=== PATIENT | female | born 1950 | race Caucasian/White ===

== ENCOUNTER 2019-03-29 11:00 | Day surgery (SDC) | payer MEDICARE, OTHER ==
[~2019-03-29] VITALS: Ht 172.7 cm; Wt 85.8 kg
[2019-03-29] MEDS ORDERED: SUCR1 (11:37)
[2019-03-29] MEDS ORDERED: TIOT18 (11:38)
[2019-03-29] MEDS ORDERED: PANT20 (11:38)
[2019-03-29] MEDS ORDERED: Ventolin5 MG/1 ML (11:39)
[2019-03-29] MEDS ORDERED: DEXL60CA3 (11:39)
== END 2019-03-29 12:44 | disposition home or self-care (01) ==
LOC: ORSCSDS 11:00
PROVIDERS: Internal Medicine Gastroenterology
PROC: 0DB68ZX Excision of Stomach, Via Natural or Artificial Opening Endoscopic, Diagnostic (ICD-10-PCS; principal; 2019-03-29 12:15)
PROC: 0D758ZZ Dilation of Esophagus, Via Natural or Artificial Opening Endoscopic (ICD-10-PCS; principal; 2019-03-29 12:15)
PROC: 0DB98ZX Excision of Duodenum, Via Natural or Artificial Opening Endoscopic, Diagnostic (ICD-10-PCS; principal; 2019-03-29 12:15)
DX: R13.10 Dysphagia, unspecified (principal); K29.80 Duodenitis without bleeding; R10.13 Epigastric pain; R11.2 Nausea with vomiting, unspecified; R63.4 Abnormal weight loss; Z87.11 Personal history of peptic ulcer disease; J44.9 Chronic obstructive pulmonary disease, unspecified; F32.9 Major depressive disorder, single episode, unspecified; Z87.891 Personal history of nicotine dependence; Z79.899 Other long term (current) drug therapy
CPT/HCPCS: 88305; 88342; J2704; J7120

== ENCOUNTER → 2019-12-06 | Outpatient (CLI) | payer MEDICARE, OTHER ==
[~2019-12-06] MED LIST: DEXL60CA3; PANT20; SUCR1; TIOT18; Ventolin5 MG/1 ML
== END | disposition home or self-care (01) ==
LOC: LAB SHORT 16:35 → LAB 16:35
DX: N39.0 Urinary tract infection, site not specified (principal)
CPT/HCPCS: 87077; 87086; 87186

== ENCOUNTER 2020-01-10 11:01 | Day surgery (SDC) | payer MEDICARE, OTHER ==
[~2020-01-10] VITALS: Ht 172.7 cm; Wt 87.0 kg
[2020-01-10] MEDS ORDERED: ALBU3IS (11:19)
--- NOTE | 2020-01-10 12:13 | NUR ---
01/10/20 1213 Natasha Art INCOMPLETE COLONOSCOPY, UNABLE TO REACH CUCUM.
--- NOTE | 2020-01-10 12:40 | NUR ---
01/10/20 1240 Natasha Art PT TRANSFERRED TO [facility] IM[facility]ING FOR BARIUM ENEMA D/T INCOMPLETE COLONOSCOPY. UNABLE TO REACH CECUM.
== END 2020-01-10 12:40 | disposition home or self-care (01) ==
LOC: ORSCSDS 11:01
PROVIDERS: Internal Medicine Gastroenterology
PROC: 0DJD8ZZ Inspection of Lower Intestinal Tract, Via Natural or Artificial Opening Endoscopic (ICD-10-PCS; principal; 2020-01-10 12:15)
DX: Z12.11 Encounter for screening for malignant neoplasm of colon (principal); Z86.010 Personal history of colon polyps; K64.8 Other hemorrhoids; J44.9 Chronic obstructive pulmonary disease, unspecified; Z87.891 Personal history of nicotine dependence; Z79.899 Other long term (current) drug therapy
CPT/HCPCS: 74270; J2704; J7120

== ENCOUNTER → 2020-11-10 | Outpatient (CLI) | payer MEDICARE, OTHER ==
[~2020-11-10] MED LIST changes: +ALBU3IS
[2020-11-11 12:33] LABS: Stool Occult Bld Immuno 1 Positive (NEGATIVE); Stool Occult Bld Immuno 2 Positive (NEGATIVE); Stool Occult Bld Immuno 3 Positive (NEGATIVE)
== END | disposition home or self-care (01) ==
LOC: OLS 15:03 → LAB SHORT 15:03
PROVIDERS: Student in an Organized Health Care Education/Training Program
DX: Z12.11 Encounter for screening for malignant neoplasm of colon (principal)
CPT/HCPCS: G0328

== ENCOUNTER → 2022-04-21 | Outpatient (CLI) | payer MEDICARE, OTHER | END | disposition home or self-care (01) | LOC: LAB SHORT 14:16 | DX: N39.0 Urinary tract infection, site not specified (principal); E11.9 Type 2 diabetes mellitus without complications | CPT/HCPCS: 36415; 83036; 87077; 87086; 87186 ==

== ENCOUNTER → 2022-07-28 | Outpatient (CLI) | payer MEDICARE, OTHER ==
[2022-07-28 14:33] LABS: Albumin/Globulin Ratio 1.1 (0.8-1.8); Bilirubin, Total 0.7 mg/dL (0.1-1.0); Calcium, Blood 9.1 mg/dL (8.5-10.1); Creatinine, Blood 1.21 mg/dL (0.40-1.00); Globulin, Blood 3.8 g/dL (2.2-4.0); Total Protein, Blood 7.8 g/dL (6.4-8.2)
== END ==
LOC: LAB 10:53 → LAB SHORT 10:53
PROVIDERS: Family Medicine
DX: E11.9 Type 2 diabetes mellitus without complications (principal)
CPT/HCPCS: 80053; 83036

== ENCOUNTER 2022-10-06 18:26 | Emergency (ER) | payer MEDICARE, OTHER ==
[~2022-10-06] VITALS: Ht 172.7 cm; Wt 88.5 kg
[2022-10-06] MEDS ORDERED: ACET500 PO (23:46)
[2022-10-06] MEDS ORDERED: IBUP400 PO (23:46)
[2022-10-06] MEDS ORDERED: MORP15ER PO (23:46)
== END 2022-10-07 | disposition home or self-care (01) ==
LOC: ER 18:26
DX: S22.089A Unspecified fracture of T11-T12 vertebra, initial encounter for closed fracture (principal); S31.010A Laceration without foreign body of lower back and pelvis without penetration into retroperitoneum, initial encounter; W11.XXXA Fall on and from ladder, initial encounter; Z79.899 Other long term (current) drug therapy; J45.909 Unspecified asthma, uncomplicated; Z87.891 Personal history of nicotine dependence
CPT/HCPCS: 72100; 96372; 99283-25; A9270; J1885

== ENCOUNTER → 2023-07-24 | Outpatient (CLI) | payer MEDICARE, OTHER ==
[~2023-07-24] MED LIST changes: +ACET500 PO; +IBUP400 PO; +MORP15ER PO
[2023-07-29 01:44] LABS: CALPROTECTIN,FECAL 59 ug/g (<=49); PANCREATIC ELASTASE,FECAL 253 ug/g (>=100)
[2023-07-31 10:52] LABS: OVA AND PARASITE,FECAL INTERP Negative (Negative)
== END | disposition home or self-care (01) ==
LOC: LAB SHORT 22:04 → LAB 22:04
PROVIDERS: Student in an Organized Health Care Education/Training Program
DX: R19.4 Change in bowel habit (principal); R19.7 Diarrhea, unspecified
CPT/HCPCS: 82653; 83993; 87015; 87045; 87046; 87075; 87177; 87205; 87209; 87899

== ENCOUNTER → 2023-07-28 | Outpatient (CLI) | payer MEDICARE, OTHER ==
[2023-07-29 12:32] LABS: C DIFFICILE DNA NEGATIVE (Negative)
== END ==
LOC: LAB SHORT 18:19 → LAB 18:19 → LAB FUT 07-27 09:00
PROVIDERS: Student in an Organized Health Care Education/Training Program
DX: R19.4 Change in bowel habit (principal); R19.7 Diarrhea, unspecified
CPT/HCPCS: 87493

== ENCOUNTER 2025-06-01 13:17 | Day surgery (SDC) | payer MEDICARE, OTHER ==
[2025-06-01] MEDS ORDERED: NS 250 ML IV SCH (15:25)
[2025-06-01 16:00] VITALS: BP 112/64
[2025-06-01 17:00] VITALS: BP 91/56
[2025-06-01 18:00] VITALS: BP 94/59
[2025-06-01 18:26] VITALS: BP 110/59
[2025-06-01] MEDS ORDERED: OXYC5 PO (19:04)
[2025-06-01] MEDS ORDERED: PREG25 PO (19:04)
== END 2025-06-01 18:35 | disposition home or self-care (01) ==
LOC: ATC 13:17
DX: C92.10 Chronic myeloid leukemia, BCR/ABL-positive, not having achieved remission (principal); E78.2 Mixed hyperlipidemia; E11.9 Type 2 diabetes mellitus without complications; J44.9 Chronic obstructive pulmonary disease, unspecified; R16.1 Splenomegaly, not elsewhere classified; K74.69 Other cirrhosis of liver; Z87.891 Personal history of nicotine dependence; Z79.899 Other long term (current) drug therapy; Z90.49 Acquired absence of other specified parts of digestive tract; Z90.710 Acquired absence of both cervix and uterus
CPT/HCPCS: 36415; 36430; 80053; 83615; 85025; 86850; 86900; 86901; 86923; J7050; P9016

== ENCOUNTER 2025-06-16 06:39 | Emergency (ER) | payer MEDICARE, OTHER ==
[~2025-06-16] VITALS: Ht 172.7 cm; Wt 77.1 kg
[~2025-06-16 06:39] MED LIST changes: +OXYC5 PO; +PREG25 PO
[2025-06-16] MEDS ORDERED: Morphine Sulfate 4 MG/1 ML Injection IV ONE (07:40)
[2025-06-16] MEDS ORDERED: NS 1,000 ML IV SCH (07:40)
[2025-06-16 08:13] LABS: Alanine Aminotransfer (ALT/SGP 11.0 U/L (12-78); Albumin, Blood 3.1 g/dL (3.4-5.0); Albumin/Globulin Ratio 0.7 (0.8-1.8); Anion Gap 9.0 mmol/L (3-11); Aspartate Aminotrans (AST/SGOT 12.0 U/L (12-37); Bilirubin, Total 2.7 mg/dL (0.1-1.0); Blood Urea Nitrogen 12.0 mg/dL (8-24); CO2, Blood 25.0 mmol/L (21-32); Calcium, Blood 8.6 mg/dL (8.5-10.1); Chloride, Blood 106.0 mmol/L (98-108); Creatinine, Blood 1.13 mg/dL (0.40-1.00); Globulin, Blood 4.2 g/dL (2.2-4.0); Glucose, Blood 142.0 mg/dL (70-99); Magnesium, Blood 2.0 mg/dL (1.6-2.4); Potassium, Blood 3.8 mmol/L (3.5-5.5); Sodium, Blood 136.0 mmol/L (136-145); Total Protein, Blood 7.3 g/dL (6.4-8.2)
[2025-06-16 08:15] LABS: BASOPHILS ABSOLUTE AUTO 0.03 K/mm3 (0.00-0.23); BASOPHILS PERCENT AUTO 1 % (0-2); EOSINOPHILS ABSOLUTE AUTO 0.02 K/mm3 (0.00-0.68); EOSINOPHILS PERCENT AUTO 0 % (0-6); Hematocrit 30.5 % (33.0-51.0); Hemoglobin 9.6 g/dL (11.5-16.0); IMMATURE GRAN ABSOLUTE AUTO 0.03 K/mm3 (0.00-0.10); IMMATURE GRAN PERCENT AUTO 1 % (0-1); LYMPHOCYTES ABSOLUTE AUTO 0.87 K/mm3 (0.84-5.20); LYMPHOCYTES PERCENT AUTO 15 % (21-46); MONOCYTES ABSOLUTE AUTO 0.73 K/mm3 (0.16-1.47); MONOCYTES PERCENT AUTO 12 % (4-13); Mean Corpuscular HGB Conc 31.5 g/dL (31.5-36.5); NEUTROPHILS ABSOLUTE AUTO 4.32 K/mm3 (1.96-9.15); NEUTROPHILS PERCENT AUTO 72 % (41-73); NRBC ABSOLUTE 0.00 K/mm3 (0.00-0.02); NRBC Auto 0.0 /100 WBC (0.0-0.2); Platelet Count 123 K/mm3 (150-400); RDW Coefficient Variation 17.4 % (11.7-14.2); RDW Standard Deviation 57.2 fL (35.1-46.3)
[2025-06-16 08:16] LABS: Mean Corpuscular Volume 89 fL (80-100)
[2025-06-16 11:32] LABS: Source, Urine Straight Cath
[2025-06-16 11:37] LABS: Bilirubin, Urine Neg (Neg); Color, Urine Yellow (P-Yellow); Glucose Qualitative, Urine Neg (Neg); Ketones, Urine Neg (Neg); Leukocyte Esterase, Urine Neg (Neg); Protein, Urine 2+ (Neg); Specific Gravity, Urine 1.010 (1.003-1.022); Urobilinogen, Urine 1+ (Normal)
[2025-06-16 11:50] LABS: Red Blood Cells, Urine 0-2 /hpf (0-2); White Blood Cells, Urine 0-2 /hpf (0-5)
[2025-06-16] MEDS ORDERED: Ketorolac Tromethamine 30mg Vial IV ONE (12:30)
[2025-06-16] MEDS ORDERED: HYDR1TAB94 PO (14:28)
[2025-06-16] MEDS ORDERED: HYDROcodone 5-APAP 325 TAB PO ONE (14:35)
[2025-06-16 15:10] VITALS: BP 119/72
== END 2025-06-16 15:15 | disposition home or self-care (01) ==
LOC: ER 06:39
PROVIDERS: Emergency Medicine
DX: S93.401A Sprain of unspecified ligament of right ankle, initial encounter (principal); R60.0 Localized edema; R53.1 Weakness; W18.30XA Fall on same level, unspecified, initial encounter; J45.909 Unspecified asthma, uncomplicated; Z87.891 Personal history of nicotine dependence
CPT/HCPCS: 51701; 70450; 73610; 80053; 81001; 83605; 83735; 83880; 85025; 86850; 86900; 86901; 93005; 93010; 93971; 96361; 96374; 99285-25; A6590; A9270; J2270; J7030; L1906

== ENCOUNTER 2025-07-13 10:53 | Inpatient (IN) | payer MEDICARE, OTHER ==
[~2025-07-13] VITALS: Ht 172.7 cm; Wt 68.0 kg
[~2025-07-13 10:53] MED LIST changes: +HYDR1TAB94 PO
[2025-07-13 11:21] LABS: BASOPHILS ABSOLUTE AUTO 0.02 K/mm3 (0.00-0.23); BASOPHILS PERCENT AUTO 0 % (0-2); EOSINOPHILS ABSOLUTE AUTO 0.06 K/mm3 (0.00-0.68); EOSINOPHILS PERCENT AUTO 1 % (0-6); Hematocrit 27.9 % (33.0-51.0); Hemoglobin 9.3 g/dL (11.5-16.0); IMMATURE GRAN ABSOLUTE AUTO 0.04 K/mm3 (0.00-0.10); IMMATURE GRAN PERCENT AUTO 0 % (0-1); LYMPHOCYTES ABSOLUTE AUTO 0.89 K/mm3 (0.84-5.20); LYMPHOCYTES PERCENT AUTO 8 % (21-46); MONOCYTES ABSOLUTE AUTO 0.52 K/mm3 (0.16-1.47); MONOCYTES PERCENT AUTO 4 % (4-13); Mean Corpuscular HGB Conc 33.3 g/dL (31.5-36.5); Mean Corpuscular Volume 84 fL (80-100); NEUTROPHILS ABSOLUTE AUTO 10.20 K/mm3 (1.96-9.15); NEUTROPHILS PERCENT AUTO 87 % (41-73); NRBC ABSOLUTE 0.00 K/mm3 (0.00-0.02); NRBC Auto 0.0 /100 WBC (0.0-0.2); Platelet Count 127 K/mm3 (150-400); RDW Coefficient Variation 19.0 % (11.7-14.2); RDW Standard Deviation 58.2 fL (35.1-46.3)
[2025-07-13 11:41] LABS: Alanine Aminotransfer (ALT/SGP 13.0 U/L (12-78); Albumin, Blood 3.2 g/dL (3.4-5.0); Albumin/Globulin Ratio 0.8 (0.8-1.8); Anion Gap 7.0 mmol/L (3-11); Aspartate Aminotrans (AST/SGOT 13.0 U/L (12-37); Bilirubin, Total 1.8 mg/dL (0.1-1.0); Blood Urea Nitrogen 12.0 mg/dL (8-24); CO2, Blood 26.0 mmol/L (21-32); Calcium, Blood 8.5 mg/dL (8.5-10.1); Chloride, Blood 105.0 mmol/L (98-108); Creatinine, Blood 0.98 mg/dL (0.40-1.00); Globulin, Blood 3.8 g/dL (2.2-4.0); Glucose, Blood 141.0 mg/dL (70-99); Potassium, Blood 3.4 mmol/L (3.5-5.5); Sodium, Blood 135.0 mmol/L (136-145); Total Protein, Blood 7.0 g/dL (6.4-8.2)
[2025-07-13] MEDS ORDERED: Clindamycin 600mg in D5W 50 ML IV ONE (13:20)
[2025-07-13] MEDS ORDERED: Ondansetron HCl 2 MG / ML 2ML Vial IV ONE (13:40)
[2025-07-13] MEDS ORDERED: HYDROmorphone HCl/Pf 1MG SYR IV ONE (13:40)
[2025-07-13] MEDS ORDERED: FLU VACC TS2025-26(6MOS UP)/PF 45 MCG/0.5 ML SYRINGE IM SCH (16:00)
[2025-07-13] MEDS ORDERED: Sprycel100 MG PO (16:10)
[2025-07-13] MEDS ORDERED: lactulose 20 gram/30 PO (16:11)
[2025-07-13] MEDS ORDERED: Morphine Sulfat15 MG PO (16:12)
[2025-07-13] MEDS ORDERED: Aldactone50 MG PO (16:13)
[2025-07-13] MEDS ORDERED: Ampicillin Sod/Sulbactam Sod 3 GM in NS 100 ML IV SCH (16:30)
[2025-07-13 17:55] VITALS: BP 126/70
--- NOTE | 2025-07-13 18:42 | NUR ---
PATIENT ARRIVED VIA GURNEY FROM ER. ORIENTED TO ROOM AND CALL LIGHT. FAMILY AT BEDSIDE WITH PATIENT. PATIENT NOT HUNGRY FOR DINNER AT THIS TIME. ENCOURAGED TO EAT TO KEEP ENERGY UP. CALL LIGHT WITHIN REACH. ADMISSION PROCESS DONE. NO CONCERNS. ENCOURAGED PATIENT TO CALL WHEN USING THE BATHROOM. VERBALLY AGREED
[2025-07-13 19:41] VITALS: BP 133/80
[2025-07-13] MEDS ORDERED: NS 250 ML IV PRN (22:45)
[2025-07-14 04:06] VITALS: BP 123/72
[2025-07-14 05:12] LABS: BASOPHILS ABSOLUTE AUTO 0.02 K/mm3 (0.00-0.23); BASOPHILS PERCENT AUTO 0 % (0-2); EOSINOPHILS ABSOLUTE AUTO 0.03 K/mm3 (0.00-0.68); EOSINOPHILS PERCENT AUTO 0 % (0-6); Hematocrit 25.2 % (33.0-51.0); Hemoglobin 8.7 g/dL (11.5-16.0); IMMATURE GRAN ABSOLUTE AUTO 0.05 K/mm3 (0.00-0.10); IMMATURE GRAN PERCENT AUTO 0 % (0-1); LYMPHOCYTES ABSOLUTE AUTO 1.33 K/mm3 (0.84-5.20); LYMPHOCYTES PERCENT AUTO 12 % (21-46); MONOCYTES ABSOLUTE AUTO 0.52 K/mm3 (0.16-1.47); MONOCYTES PERCENT AUTO 5 % (4-13); Mean Corpuscular HGB Conc 34.5 g/dL (31.5-36.5); Mean Corpuscular Volume 83 fL (80-100); NEUTROPHILS ABSOLUTE AUTO 9.32 K/mm3 (1.96-9.15); NEUTROPHILS PERCENT AUTO 83 % (41-73); NRBC ABSOLUTE 0.00 K/mm3 (0.00-0.02); NRBC Auto 0.0 /100 WBC (0.0-0.2); Platelet Count 81 K/mm3 (150-400); RDW Coefficient Variation 19.2 % (11.7-14.2); RDW Standard Deviation 57.4 fL (35.1-46.3)
[2025-07-14 05:40] LABS: Alanine Aminotransfer (ALT/SGP 11.0 U/L (12-78); Albumin, Blood 2.6 g/dL (3.4-5.0); Albumin/Globulin Ratio 0.7 (0.8-1.8); Anion Gap 9.0 mmol/L (3-11); Aspartate Aminotrans (AST/SGOT 8.0 U/L (12-37); Bilirubin, Total 1.8 mg/dL (0.1-1.0); Blood Urea Nitrogen 12.0 mg/dL (8-24); CO2, Blood 25.0 mmol/L (21-32); Calcium, Blood 8.0 mg/dL (8.5-10.1); Chloride, Blood 103.0 mmol/L (98-108); Creatinine, Blood 0.82 mg/dL (0.40-1.00); Globulin, Blood 3.8 g/dL (2.2-4.0); Glucose, Blood 122.0 mg/dL (70-99); Potassium, Blood 3.3 mmol/L (3.5-5.5); Sodium, Blood 134.0 mmol/L (136-145); Total Protein, Blood 6.4 g/dL (6.4-8.2)
--- NOTE | 2025-07-14 06:10 | NUR ---
SHIFT SUMMARY PT CONITNUES TO HAVE LEFT FACE/NECK SWELLING AND STATES SOME DIFFICULTY SWALLOWING DUE TO SWELLING AND PAIN. MSIR GIVEN FOR PAIN PER EMAR WITH LITTLE RELIEF. PT STATES SHE FEELS THAT SWELLING MIGHT BE A LITTLE BETTER THIS AM. IV ANTIBIOTICS GIVEN PER ORDER. PT SLEPT INTERMITTENTLY DURING THE NIGHT.
[2025-07-14 07:36] VITALS: BP 104/76
[2025-07-14] MEDS ORDERED: Enoxaparin 40 MG/0.4 ML SYR SC SCH (09:00)
[2025-07-14 11:52] VITALS: BP 119/62
[2025-07-14 16:13] VITALS: BP 112/70
--- NOTE | 2025-07-14 18:48 | NUR ---
END OF SHIFT PATIENT RESTING IN BED. CALL LIGHT IN REACH, A&O4, ABLE TO MAKE NEEDS KNOWN. SWELLING CONTINUES TO LEFT SIDE OF FACE AND NECK, SOME HAND AND FEET SWELLING ALSO WHICH HAS BEEN SINCE ADMISSION. PATIENT DENIES NEEDS OR QUESTIONS. FAMILY AT BEDSIDE MOST OF TODAY. IND IN ROOM AND TO BATHROOM. NO OTHER CONCERNS FOR THIS SHIFT.
[2025-07-14 19:30] VITALS: BP 110/72
--- NOTE | 2025-07-15 03:25 | NUR ---
SHIFT SUMMARY PT SLEPT MOST OF THE NIGHT. A&OX4. ABLE TO MAKE NEEDS KNOWN. ON ROOM AIR. STILL HAVING SWELLING TO HER FACE (WORSE ON THE L), HANDS AND FEET. SWELLING SLIGHTLY IMPROVED FROM BEGINNING TO END OF SHIFT. SHE IS INDEPENDENT TO THE BATHROOM. REGULAR DIET HOWEVER SHE COMPLAINS OF DIFFICULTY EATING AND SWALLOWING DUE TO THE SWELLING/CELLULITIS IN HER L NECK. SHE HAS BEEN DRINKING ENSURE WHICH SHE LIKES. R ARM PIV/INTERMITTENT ANTIBIOTICS/SL. AT BEDSIDE AND STAYED WITH PT THROUGHOUT THE NIGHT. VSS. BED IN LOWEST POSITION. CALL LIGHT IN REACH.
[2025-07-15 03:47] VITALS: BP 115/69
[2025-07-15 07:26] VITALS: BP 116/75
[2025-07-15 10:07] VITALS: BP 105/67
[2025-07-15 11:41] VITALS: BP 114/75
[2025-07-15 16:08] VITALS: BP 108/55
[2025-07-15 19:46] VITALS: BP 114/67
--- NOTE | 2025-07-15 19:55 | NUR ---
SHIFT SUMMARY- PT ALERT, ORIENTED AND INDEPENDENT IN THE ROOM AND THE HALLWAYS. PT HAS HAD NO ACUTE CHANGE T/O THE SHIFT. SHE HAD SOME WHEEZY LUNG SOUNDS AT THE START OF THE SHIFT. DR DÍAZ Q4 ALBUTEROL NEBS PRN. PLAN IS FOR PT TO DC HOME TOMORROW IF SHE CONTINUES TO IMPROVE SHE HAS.
[2025-07-15] MEDS ORDERED: Albuterol 2.5 MG/3 ML VIAL INH PRN (21:20)
[2025-07-16 03:59] VITALS: BP 109/74
[2025-07-16 05:00] LABS: BASOPHILS ABSOLUTE AUTO 0.00 K/mm3 (0.00-0.23); BASOPHILS PERCENT AUTO 0 % (0-2); EOSINOPHILS ABSOLUTE AUTO 0.00 K/mm3 (0.00-0.68); EOSINOPHILS PERCENT AUTO 0 % (0-6); Hematocrit 23.7 % (33.0-51.0); Hemoglobin 7.7 g/dL (11.5-16.0); IMMATURE GRAN ABSOLUTE AUTO 0.08 K/mm3 (0.00-0.10); IMMATURE GRAN PERCENT AUTO 1 % (0-1); LYMPHOCYTES ABSOLUTE AUTO 0.29 K/mm3 (0.84-5.20); LYMPHOCYTES PERCENT AUTO 5 % (21-46); MONOCYTES ABSOLUTE AUTO 0.05 K/mm3 (0.16-1.47); MONOCYTES PERCENT AUTO 1 % (4-13); Mean Corpuscular HGB Conc 32.5 g/dL (31.5-36.5); Mean Corpuscular Volume 85 fL (80-100); NEUTROPHILS ABSOLUTE AUTO 6.09 K/mm3 (1.96-9.15); NEUTROPHILS PERCENT AUTO 94 % (41-73); NRBC ABSOLUTE 0.00 K/mm3 (0.00-0.02); NRBC Auto 0.0 /100 WBC (0.0-0.2); Platelet Count 85 K/mm3 (150-400); RDW Coefficient Variation 18.4 % (11.7-14.2); RDW Standard Deviation 58.0 fL (35.1-46.3)
[2025-07-16 05:42] LABS: Alanine Aminotransfer (ALT/SGP 9.0 U/L (12-78); Albumin, Blood 2.5 g/dL (3.4-5.0); Albumin/Globulin Ratio 0.7 (0.8-1.8); Anion Gap 8.0 mmol/L (3-11); Aspartate Aminotrans (AST/SGOT 7.0 U/L (12-37); Bilirubin, Total 0.6 mg/dL (0.1-1.0); Blood Urea Nitrogen 29.0 mg/dL (8-24); CO2, Blood 27.0 mmol/L (21-32); Calcium, Blood 8.2 mg/dL (8.5-10.1); Chloride, Blood 105.0 mmol/L (98-108); Creatinine, Blood 0.96 mg/dL (0.40-1.00); Globulin, Blood 3.6 g/dL (2.2-4.0); Glucose, Blood 306.0 mg/dL (70-99); Potassium, Blood 3.7 mmol/L (3.5-5.5); Sodium, Blood 136.0 mmol/L (136-145); Total Protein, Blood 6.1 g/dL (6.4-8.2)
[2025-07-16 07:35] VITALS: BP 95/58
[2025-07-16] MEDS ORDERED: Calcium Carbon500 MG PO (09:32)
[2025-07-16] MEDS ORDERED: AMOCLA875 PO (09:33)
[2025-07-16] MEDS ORDERED: DASATINIB PO (09:33)
[2025-07-16] MEDS ORDERED: PRED20 PO (09:33)
== END 2025-07-16 13:00 | disposition home or self-care (01) | DRG 155 ==
LOC: ER 10:53 → MEDS 10:54 → ENPENDDIS 07-16 08:55 → MEDS 07-16 13:00
PROVIDERS: Internal Medicine; Physician Assistant; ADMIT Family Medicine
DX: K11.21 Acute sialoadenitis (principal); C92.10 Chronic myeloid leukemia, BCR/ABL-positive, not having achieved remission; E44.0 Moderate protein-calorie malnutrition; L03.221 Cellulitis of neck; K76.6 Portal hypertension; J45.909 Unspecified asthma, uncomplicated; Z66 Do not resuscitate; N18.31 Chronic kidney disease, stage 3a; D69.6 Thrombocytopenia, unspecified; D64.81 Anemia due to antineoplastic chemotherapy; R63.0 Anorexia; K74.60 Unspecified cirrhosis of liver; M79.89 Other specified soft tissue disorders; G62.9 Polyneuropathy, unspecified; D63.0 Anemia in neoplastic disease; Z79.899 Other long term (current) drug therapy; Z79.891 Long term (current) use of opiate analgesic; Z79.51 Long term (current) use of inhaled steroids; Z79.1 Long term (current) use of non-steroidal anti-inflammatories (NSAID); Z87.19 Personal history of other diseases of the digestive system; Z87.891 Personal history of nicotine dependence; Z87.81 Personal history of (healed) traumatic fracture; Z68.22 Body mass index [BMI] 22.0-22.9, adult
CPT/HCPCS: 36415; 70491; 80053; 83605; 85025; 94760; 96365-59; 96367; 96372; 96375; 96376; 99284-25; A9270; G0378; J0295; J1171; J1650; J2405; J2919; J7050; Q9967

== ENCOUNTER 2025-07-26 12:09 | Emergency (ER) | payer MEDICARE, OTHER ==
[~2025-07-26] VITALS: Ht 172.7 cm; Wt 68.0 kg
[~2025-07-26 12:09] MED LIST changes: +AMOCLA875 PO; +Aldactone50 MG PO; +Calcium Carbon500 MG PO; +DASATINIB PO; +Morphine Sulfat15 MG PO; +PRED20 PO; +Sprycel100 MG PO; +lactulose 20 gram/30 PO
[2025-07-26 13:20] LABS: BASOPHILS ABSOLUTE AUTO 0.01 K/mm3 (0.00-0.23); BASOPHILS PERCENT AUTO 0 % (0-2); EOSINOPHILS ABSOLUTE AUTO 0.06 K/mm3 (0.00-0.68); EOSINOPHILS PERCENT AUTO 1 % (0-6); Hematocrit 30.4 % (33.0-51.0); Hemoglobin 10.0 g/dL (11.5-16.0); IMMATURE GRAN ABSOLUTE AUTO 0.04 K/mm3 (0.00-0.10); IMMATURE GRAN PERCENT AUTO 1 % (0-1); LYMPHOCYTES ABSOLUTE AUTO 0.85 K/mm3 (0.84-5.20); LYMPHOCYTES PERCENT AUTO 10 % (21-46); MONOCYTES ABSOLUTE AUTO 0.54 K/mm3 (0.16-1.47); MONOCYTES PERCENT AUTO 7 % (4-13); Mean Corpuscular HGB Conc 32.9 g/dL (31.5-36.5); Mean Corpuscular Volume 84 fL (80-100); NEUTROPHILS ABSOLUTE AUTO 6.81 K/mm3 (1.96-9.15); NEUTROPHILS PERCENT AUTO 82 % (41-73); NRBC ABSOLUTE 0.00 K/mm3 (0.00-0.02); NRBC Auto 0.0 /100 WBC (0.0-0.2); Platelet Count 139 K/mm3 (150-400); RDW Coefficient Variation 20.1 % (11.7-14.2); RDW Standard Deviation 57.8 fL (35.1-46.3)
[2025-07-26 13:47] LABS: Alanine Aminotransfer (ALT/SGP 21.0 U/L (12-78); Albumin, Blood 3.3 g/dL (3.4-5.0); Albumin/Globulin Ratio 1.0 (0.8-1.8); Anion Gap 8.0 mmol/L (3-11); Aspartate Aminotrans (AST/SGOT 13.0 U/L (12-37); Bilirubin, Total 2.4 mg/dL (0.1-1.0); Blood Urea Nitrogen 9.0 mg/dL (8-24); CO2, Blood 26.0 mmol/L (21-32); Calcium, Blood 8.4 mg/dL (8.5-10.1); Chloride, Blood 105.0 mmol/L (98-108); Creatinine, Blood 0.86 mg/dL (0.40-1.00); Globulin, Blood 3.2 g/dL (2.2-4.0); Glucose, Blood 106.0 mg/dL (70-99); Potassium, Blood 3.6 mmol/L (3.5-5.5); Sodium, Blood 135.0 mmol/L (136-145); Thyroid Stimulating Hormone 1.51 uIU/mL (0.360-4.800); Total Protein, Blood 6.5 g/dL (6.4-8.2)
[2025-07-26] MEDS ORDERED: CLIN150 PO (14:48)
[2025-07-26 15:00] VITALS: BP 132/83
== END 2025-07-26 15:11 | disposition home or self-care (01) ==
LOC: ER 12:09
PROVIDERS: Emergency Medicine
DX: K11.21 Acute sialoadenitis (principal); K11.3 Abscess of salivary gland; J45.909 Unspecified asthma, uncomplicated; Z87.891 Personal history of nicotine dependence; Z79.899 Other long term (current) drug therapy
CPT/HCPCS: 70491; 80053; 84443; 85025; 93005; 93010; 99284-25; A9270; Q9967